=== PATIENT | male | born 1970 | race African-American/Black ===

== ENCOUNTER 2018-04-03 14:19 | Emergency (ER) | payer OTHER ==
[~2018-04-03] VITALS: Ht 175.3 cm; Wt 88.5 kg
--- NOTE | 2018-04-03 14:44 | NUR ---
PT IS IN ROOM #2B. DR MEIER EVALUATED THE PT.
[2018-04-03] MEDS ORDERED: IBUPROFEN 800 MG TABLET PO ONE (14:45)
[2018-04-03] MEDS ORDERED: IBUPROFEN 800 MG TABLET ONE (15:10)
[2018-04-03] MEDS ORDERED: NEOMY/BACITRA/POLYMYXIN B OINT UD PACKET TP ONE ×2 (15:30→15:33)
--- NOTE | 2018-04-03 15:33 | NUR ---
PT WAS D/C'D TO HOME. D/C INSTRUCTIONS GIVEN TO THE PT.
[2018-04-03 15:34] VITALS: BP 128/81
== END 2018-04-03 15:35 | disposition home or self-care (01) ==
LOC: ER 14:19
DX: S60.042A Contusion of left ring finger without damage to nail, initial encounter (principal); W23.0XXA Caught, crushed, jammed, or pinched between moving objects, initial encounter; Y93.89 Activity, other specified; Y92.89 Other specified places as the place of occurrence of the external cause; Y99.8 Other external cause status
CPT/HCPCS: 73140; 99284; A4217; A4663